=== PATIENT | male | born 1985 | race Caucasian/White ===

== ENCOUNTER 2017-06-16 17:59 | Emergency (ER) | payer OTHER ==
[~2017-06-16] VITALS: Ht 175.3 cm; Wt 78.2 kg
[~2017-06-16 17:59] MED LIST: AMOXICILLIN 50500 MG PO; CLEOCIN HCL300 MG PO; MOTRIN 800800 MG/TAB PO; TYLENOL 325MG325 MG PO
[2017-06-16 18:02] VITALS: BP 120/73; TEMP 98.1
[2017-06-16] MEDS ORDERED: CILOXAN 5 ML5 ML OD (19:07)
[2017-06-16 19:11] VITALS: PULSE 65
== END 2017-06-16 19:20 | disposition home or self-care (01) ==
LOC: COL.ER 17:59
DX: S05.01XA Injury of conjunctiva and corneal abrasion without foreign body, right eye, initial encounter (principal); W22.8XXA Striking against or struck by other objects, initial encounter